=== PATIENT | male | born 1965 | race Caucasian/White ===

== ENCOUNTER 2020-08-05 08:47 | Outpatient (REF) | payer BC, SELFPAY ==
[2020-08-05 20:52] LABS: Anion Gap 7.6 mmol/L (3-11); BUN 15 mg/dL (7-18); CO2 28.4 mmol/L (21.0-32.0); CREATININE 1.13 mg/dL (0.70-1.30); Calcium 8.4 mg/dL (8.5-10.1); Calculated LDL 107 mg/dL (<100); Chloride 105 mmol/L (98-107); Cholesterol 197 mg/dL (<200); Glucose 88 mg/dL (74-106); HDL Cholesterol 76 mg/dL (40-60); Potassium 4.1 mmol/L (3.5-5.1); Sodium 141 mmol/L (136-145); Triglyceride 70 mg/dL (<150)
== END 2020-08-05 09:07 ==
LOC: NCHCN 08:47
PROVIDERS: Visit Provider Physician Assistant
DX: Z00.00 Encounter for general adult medical examination without abnormal findings (principal)
CPT/HCPCS: 80048; 80061; 84153

== ENCOUNTER 2021-08-07 12:57 | Outpatient (REF) | payer BC, SELFPAY ==
[2021-08-07 15:17] LABS: HCT 47.8 % (40.0-50.0); HGB 15.7 g/dL (13.5-17.5); MCH 30.4 pg (27.0-33.0); MCHC 32.8 % (32.0-36.0); MCV 92.6 fL (80-95); MPV 10.3 fL (8.0-11.0); Platelet Count 289 10^3/uL (130-400); RBC 5.16 10^6/uL (4.36-5.78); RDW 11.6 % (11.8-14.1); RDW-SD 39.7 fL
[2021-08-07 16:03] LABS: Anion Gap 7.1 mmol/L (3-11); BUN 15 mg/dL (7-18); CO2 29.9 mmol/L (21.0-32.0); CREATININE 1.1 mg/dL (0.70-1.30); Chloride 103 mmol/L (98-107); Glucose 82 mg/dL (74-106); Potassium 4.2 mmol/L (3.5-5.1); Sodium 140 mmol/L (136-145)
[2021-08-10 08:07] LABS: PSA, Screening 1.1 ng/mL (0.0-3.5)
== END 2021-08-07 12:58 | disposition home or self-care (01) ==
LOC: NCHCN 12:57
PROVIDERS: Visit Provider Physician Assistant
DX: Z00.00 Encounter for general adult medical examination without abnormal findings (principal); Z12.5 Encounter for screening for malignant neoplasm of prostate
CPT/HCPCS: 80048; 84153; 85027

== ENCOUNTER 2021-08-28 18:26 | Outpatient (REF) | payer BC, SELFPAY ==
[2021-08-30 22:26] LABS: COVID-19 RT-PCR UVMMC Result Positive (Negative)
== END 2021-08-28 18:27 | disposition home or self-care (01) ==
LOC: NCHCN 18:26
PROVIDERS: Visit Provider Physician Assistant
DX: Z20.822 Contact with and (suspected) exposure to COVID-19 (principal); J06.9 Acute upper respiratory infection, unspecified
CPT/HCPCS: U0003

== ENCOUNTER 2022-08-10 13:44 | Outpatient (REF) | payer BC, SELFPAY ==
[2022-08-10 15:53] LABS: Calculated LDL 115 mg/dL (<100); Cholesterol 207 mg/dL (<200); HDL Cholesterol 82 mg/dL (40-60); Triglyceride 53 mg/dL (<150)
[2022-08-10 23:19] LABS: PSA, Screening 1.2 ng/mL (<=3.5)
== END 2022-08-10 13:45 | disposition home or self-care (01) ==
LOC: NCHCN 13:44
PROVIDERS: Visit Provider Physician Assistant
DX: Z00.00 Encounter for general adult medical examination without abnormal findings (principal); Z12.5 Encounter for screening for malignant neoplasm of prostate; Z13.220 Encounter for screening for lipoid disorders
CPT/HCPCS: 80061; 84153

== ENCOUNTER 2024-08-16 14:04 | Outpatient (REF) | payer BC, SELFPAY ==
--- OUTSIDE RECORDS SUMMARY | 2024-08-16 14:16 | XMS_ITS | Clinical Summary ---
Author Organization [facility] Address [facility] [place] [address] Care Team Providers Care Inventory Checker Name Role Phone Guevara Villegas MD Primary Care Provider [phone] Allergies No known active allergies Medications No known medications Active Problems Problem Noted Date Diagnosed Date Seborrheic keratosis 03/30/2018 Social History Tobacco Use Types Packs/Day Years Used Date Smoking Tobacco: Never Smokeless Tobacco: Never Sex and Gender Information Value Date Recorded Sex Assigned at Not on file Gender Identity Not on file Sexual Orientation Not on file Plan of Treatment Health Maintenance Due Date Last Done Comments CT Colonography 1964 Colonoscopy 1965 Colorectal Cancer Screening 1965 FIT DNA 1964 FIT 1964 Sigmoidoscopy (10 year) with FIT yearly 1964 Sigmoidoscopy 1965 HIV screen 02/25/1982 Hepatitis C Screening 02/25/1982 Lipid Screening 02/25/1982 Tetanus/Diphtheria/Pertussis Vaccines (1 - Tdap) 02/25 Zoster vaccine (1 of 2) 02/25/2014 Advance Directive 02/25/2019 Covid-19 Vaccine ( season) 2024 Influenza (Flu) vaccine (1 o f 1 - Influenza standard series) 05/27/2024 Care Teams Inventory Checker Relationship Specialty Start Date End Date Guevara Villegas MD [address] [place] [address] PCP - General General Internal Medicine 03/28/18
--- OUTSIDE RECORDS SUMMARY | 2024-08-16 14:16 | XMS_ITS | Encounter Summary ---
Author Organization [facility] [place] [address] Care Team Providers Care Maintenance Director Name Role Phone Guevara Villegas MD Primary Care Provider [phone] Reason for Visit * Reason Comments Skin Check * Consultation (Routine) - Specialty Diagnoses / Procedures Referred By Contac t Referred To Contact Dermatology Diagnoses Disorder of the skin and subcutaneous tissue, unspecified Disorder of the skin and subcutaneous tissue Procedures Disorder of the skin and subcutaneous tissue Guevara Villegas MD [address] [place] [id number] Rosendo Gold MD [address] [place] [address], [facility] [place] [address] Referral ID Status Reason Start Date Expiration Date V isits Requested Visits Authorized [id number] 10/20/2017 10/20/2018 1 1 Encounter Details Date Type Department Care Team (Late st Contact Info) Description 03/30/2018 8:00 AM EDT Office Visit Dermatology at [address] [phone] Rosendo Gold MD [address] [place] [address], [facility] [place] [address] Seborrheic keratosis Social History Tobacco Use Types Packs/Day Years Used Date Smoking Tobacco: Never Smokeless Tobacco: Never Sex and Gender Information Value Date Recorded Sex Assigned at Not on file Gender Identity Not on file Sexual Orientation Not on file documented as of this encounter Progress Notes * Rosendo Gold MD - 03/30/2018 8:00 AM EDT Problem: Erlinda Ramesh is a 53-year-old gentleman who was referred today by Guevara Villegas MD for evaluation of a lesion on his back. It is occasionally itchy. It has been there for a number of years and very slowly growing. He thinks that there are 2 sites on his mid back just right of midline. He group on a farm and had a fair amount of sun exposure. 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 Physical examination reveals a waxy stuck on appearing seborrheic keratosis on the patient's mid back just right of midline. Just it is centimeter in diameter. Just above it is a smaller 4 x 4 millimeter waxy stuck on appearing seborrheic keratosis as well. Above this and on the left her back he has 2 or 3 very small to 2 x 3 mm seborrheic keratosis also developing. Examination patient's face his chest is back hands informs otherwise unremarkable. He has 3 barhnart red hemangiomas of his right breast. Assessment and plan: Seborrheic keratoses 1. Patient reassured about benign seborrheic keratoses 2. No treatment necessary 3. As the site is asymptomatic and only minimally pruritic patient does not desire its removal. 4. Encouraged sun avoidance precautions. Return to clinic here as needed Cc: Guevara Villegas MD documented in this encounter Plan of Treatment Not on file documented as of this encounter Visit Diagnoses Diagnosis Seborrheic keratosis Other seborrheic keratosis documented in this encounter Care Teams Maintenance Director Relationship Specialty Start Date End Date Guevara Villegas MD [address] [place] [address] PCP - General General Internal Medicine 03/28/18 documented as of this encounter
--- OUTSIDE RECORDS SUMMARY | 2024-08-16 14:16 | XMS_ITS | Encounter Summary ---
Author Organization [facility] Address [address] [place] [address] Care Team Providers Care Electric Milkers Installer Name Role Phone Unavailable Primary Care Provider Unavailabl e Encounter Details Date Type Department Care Team (Late st Contact Info) Description 08/20/2020 Lab Requisition [facility] Pathology & Laboratory Medicine - [facility] [address] [place] [address] Outr Resulting Lab, Provider Social History Tobacco Use Types Packs/Day Years Used Date Smoking Tobacco: Never Assessed Interpersonal Safety Answer Date Record ed Physically Hurt Never 08/20/2020 Verbally Threaten Not on file 08/20/2020 Sex and Gender Information Value Date Recorded Sex Assigned at Not on file Legal Sex Male 10:00 EST Gender Identity Not on file Sexual Orientation Not on file documented as of this encounter Plan of Treatment Not on file documented as of this encounter Procedures Procedure Name Priority Date/Time Associated Diagnosis Comments PSA TOTAL, DIAGNOSTIC After X-Ray 08/05/2020 8:46 EST documented in this encounter Results * PSA TOTAL, DIAGNOSTIC (08/05/2020 8:46 EST) PSA 1.0 0.0 - 3.5 ng/mL 09/11/2020 14:45 EST [facility] Blood VENOUS BLOOD / Unknown 08/05/2020 8:46 EST 09/10/2020 9:06 EST Narrative [facility] - 09/11/2020 14:45 EST NOTE: Serum PSA concentration should not be interpreted as absolute evidence for the presence or absence of malignant disease. Assayed on Siemens ADVIA Centaur XPT using chemiluminescent technology.??Values obtained by using different assay methods cannot be used interchangeably. us Provider Outr Resulting Lab CHEMISTRY & BLOOD GA S ORDERABLES Final Result [facility] [address] [place] [address] documented in this encounter Visit Diagnoses Not on filedocumented in this encounter Additional Health Concerns Infection Onset Date Last Indicated Resolved Time COVID-19 08/28/2021 08/28/2021 09/17/2021 22:1 5 EST documented as of this encounter
--- OUTSIDE RECORDS SUMMARY | 2024-08-16 14:16 | XMS_ITS | Encounter Summary ---
Author Organization [facility] Address [address] [place] [address] Care Team Providers Care Vest Tailor Name Role Phone Unavailable Primary Care Provider Unavailabl e Encounter Details Date Type Department Care Team (Late st Contact Info) Description 08/29/2021 Lab Requisition [facility] Pathology & Laboratory Medicine - [facility] [address] [place] [address] Outr Resulting Lab, Provider Social History Tobacco [...] Procedure Name Priority Date/Time Associated Diagnosis Comments ZZCOVID-19 TEST [facility] PCR Today 08/28/2021 7:30 EST COVID-19 TESTING Routine 08/28/2021 7:30 EST documented in this encounter Results * COVID-19 TEST [facility] PCR (08/28/2021 7:30 EST) Swab 08/28/2021 7:30 EST 08/29/2021 22:00 EST us Provider Outr Resulting Lab MICROBIOLOGY - GENER AL ORDERABLES Final Result [facility] [address] [place] [address] * (ABNORMAL) COVID-19 TESTING (08/28/2021 7:30 EST) COVID-19 rt-PCR Result Positive(AA ) Negative 08/30/2021 17:18 EST [facility] Comment: This test has not been FDA cleared or approved. This test has been authorized by FDA under an EUA for use by authorized laboratories. This test has been authorized only for detection of nucleic acid from 2019-nCoV, not for any other viruses or pathogens. This test is only authorized for the duration of the declaration that circumstances exist justifying the authorization of emergency use of in vitro diagnostic tests for detection and/or diagnosis of 2019-nCoV under section 564(b)(1) of Act, 21 U.S.C ?? 360bbb-3(b) (1), unless the authorization is terminated or revoked sooner. Performed on the Synchroneuron instrument Performing Lab [place] [facility] Lab 08/30/2021 17:18 EST [facility] Swab 08/28/2021 7:30 EST 08/29/2021 22:00 EST us Provider Outr Resulting Lab MICROBIOLOGY - GENER AL ORDERABLES Final Result [facility] [address] [place] [address] documented in this encounter Visit Diagnoses Not on filedocumented in this encounter Additional Health Concerns Infection Onset Date Last Indicated Resolved Time COVID-19 08/28/2021 08/28/2021 09/17/2021 22:1 5 EST documented as of this encounter
--- OUTSIDE RECORDS SUMMARY | 2024-08-16 14:16 | XMS_ITS | Encounter Summary ---
Author Organization [facility] Address [address] [place] [address] Care Team Providers Care Java Websphere Developer Name Role Phone Unavailable Primary Care Provider Unavailabl e Encounter Details Date Type Department Care Team (Late st Contact Info) Description 08/07/2021 Lab Requisition [facility] Pathology & Laboratory Medicine - [facility] [address] [place] [address] Outr Resulting Lab, Provider Social History Tobacco [...] Date/Time Associated Diagnosis Comments PSA TOTAL, DIAGNOSTIC Routine 08/07/2021 8:27 EST documented in this encounter Results * PSA TOTAL, DIAGNOSTIC (08/07/2021 8:27 EST) PSA 1.1 0.0 - 3.5 ng/mL 08/10/2021 8:02 EST [facility] Blood VENOUS BLOOD / Unknown 08/07/2021 8:27 EST 08/07/2021 21:29 EST Narrative [facility] - 08/10/2021 8:02 EST NOTE: Serum PSA concentration should not be interpreted as absolute evidence for the presence or absence of malignant disease. Assayed on Siemens ADVIA Centaur XPT using chemiluminescent technology.??Values obtained by using different assay methods cannot be used interchangeably. us Provider Outr Resulting Lab CHEMISTRY & BLOOD GA S ORDERABLES Final Result [facility] [address] [place] [address] documented in this encounter Visit Diagnoses Not on filedocumented in this encounter Additional Health Concerns Infection Onset Date Last Indicated Resolved Time COVID-19 08/28/2021 08/28/2021 09/17/2021 22:1 5 EST documented as of this encounter
--- OUTSIDE RECORDS SUMMARY | 2024-08-16 14:16 | XMS_ITS | Clinical Summary ---
Author Organization [facility] Address [address] [place] [id number] Care Team Providers Care Busgirl Name Role Phone Unavailable Primary Care Provider Unavailabl e Social History Tobacco Use Types Packs/Day Years [...] Health Maintenance Due Date Last Done Comments Hepatitis C Screen 1965 Hepatitis B Vaccine (1 of 3 - 19+ 3-dose series) 02/25 COVID-19 Vaccine ( - 2023- season) 2024 RSV Immunization ( o r 60+ Years) (1 - 1-dose 75+ series) 02/25/2039
--- OUTSIDE RECORDS SUMMARY | 2024-08-16 14:16 | XMS_ITS | Referral Summary ---
Author Organization [facility] Address [address] [place] [address] Care Team Providers Care Slipper Maker Name Role Phone Unavailable Primary Care Provider [...] Orientation Not on file Plan of Treatment Not on file
--- OUTSIDE RECORDS SUMMARY | 2024-08-16 14:16 | XMS_ITS | Encounter Summary ---
Author Organization [facility] Address [address] [place] [address] Care Team Providers Care Dental Technician Name Role Phone Unavailable Primary Care Provider Unavailabl e Encounter Details Date Type Department Care Team (Late st Contact Info) Description 08/10/2022 Lab Requisition [facility] Pathology & Laboratory Medicine - [facility] [address] [place] [address] Outr Resulting Lab, Provider Social History Tobacco [...] Associated Diagnosis Comments PSA TOTAL, DIAGNOSTIC Routine 08/10/2022 9:51 EST documented in this encounter Results * PSA TOTAL, DIAGNOSTIC (08/10/2022 9:51 EST) PSA 1.2 <=3.5 ng/mL 08/10/2022 23:[address] [facility] Blood VENOUS BLOOD / Unknown 08/10/2022 9:51 EST 08/10/2022 21:[address] [facility] - 08/10/2022 23:14 EST NOTE: Serum PSA concentration should not be interpreted as absolute evidence for the presence or absence of malignant disease. Assayed on Siemens ADVIA Centaur XPT using chemiluminescent technology.??Values obtained by using different assay methods cannot be used interchangeably. us Provider Outr Resulting Lab CHEMISTRY & BLOOD GA S ORDERABLES Final Result [facility] [address] [place] [address] documented in this encounter Visit Diagnoses Not on filedocumented in this encounter
[2024-08-16 18:54] LABS: Calculated LDL 110 mg/dL (<100); Cholesterol 210 mg/dL (<200); HDL Cholesterol 80 mg/dL (40-60); Triglyceride 104 mg/dL (<150)
[2024-08-17 18:09] LABS: PSA, Screening 1.1 ng/mL (<=4.5)
== END 2024-08-16 14:05 | disposition home or self-care (01) ==
LOC: NCHCN 14:04
PROVIDERS: Visit Provider Physician Assistant
DX: Z12.5 Encounter for screening for malignant neoplasm of prostate (principal); Z13.220 Encounter for screening for lipoid disorders
CPT/HCPCS: 80061; 84153

== ENCOUNTER 2025-08-07 10:22 | Outpatient (REF) | payer BC, SELFPAY ==
[2025-08-07 17:31] LABS: Hemoglobin A1C 5.6 % (<5.7)
[2025-08-07 18:19] LABS: ALT 22 U/L (10-49); AST 27 U/L (<34); Albumin 4.1 g/dL (3.4-5.0); Alkaline Phosphatase 78 U/L (46-116); Anion Gap 5 mmol/L (3-11); BUN 16 mg/dL (9-23); Bilirubin, Total 0.70 mg/dL (0.2-1.2); CO2 29.0 mmol/L (20.0-31.0); Calcium 8.6 mg/dL (8.3-10.6); Chloride 105 mmol/L (98-107); Cholesterol 195 mg/dL (<200); Glucose 82 mg/dL (74-106); HDL Cholesterol 70 mg/dL (>40); Potassium 4.1 mmol/L (3.5-5.1); Sodium 139 mmol/L (136-145); Total Protein 7.1 g/dL (5.7-8.2)
[2025-08-07 22:46] LABS: PSA, Screening 1.3 ng/mL (<=4.5)
== END 2025-08-07 10:23 | disposition home or self-care (01) ==
LOC: NCHCN 10:22
PROVIDERS: Visit Provider Physician Assistant
DX: E78.5 Hyperlipidemia, unspecified (principal); Z13.1 Encounter for screening for diabetes mellitus; Z12.5 Encounter for screening for malignant neoplasm of prostate
CPT/HCPCS: 80053; 80061; 84153; 83036